=== PATIENT | female | born 1980 | race Caucasian/White ===

== ENCOUNTER 2023-10-09 12:50 | Inpatient (IN) | payer OTHER ==
[~2023-10-09] VITALS: Ht 175.3 cm; Wt 103.8 kg
[2023-10-09 13:28] LABS: BASOPHILS % (AUTO) 0.3 % (0-1); EOSINOPHILS % (AUTO) 0.1 % (0-6); HEMATOCRIT 40.1 % (35.0-45.0); HEMOGLOBIN 12.8 g/dl (12.0-16.0); MEAN CORPUSCULAR HEMOGLOBIN 27.8 PG (27.0-31.0); MEAN CORPUSCULAR HGB CONC 31.9 g/dL (33.0-36.5); MEAN CORPUSCULAR VOLUME 87.1 FL (78-98); MEAN PLATELET VOLUME 7.7 FL (7.4-10.4); MONOCYTES # (AUTO) 1.3 X10'3 (0-0.9); MONOCYTES % (AUTO) 9.2 % (2-12); NEUTROPHILS # (AUTO) 11.7 X10'3 (1.8-7.7); NEUTROPHILS % (AUTO) 83.4 % (42-75); PLATELET COUNT 223 X10'3 (140-440); RED CELL DISTRIBUTION WIDTH 14.8 % (11.5-14.5); WHITE BLOOD COUNT 14.1 X10'3 (4.5-11.0)
[2023-10-09 14:09] LABS: ALBUMIN 2.6 G/DL (3.4-5.0); ANION GAP 12 (8-16); BLOOD UREA NITROGEN 19 MG/DL (7-18); BUN/CREATININE RATIO 17.9 (10.0-20.0); CALCIUM 8.3 MG/DL (8.5-10.1); CHLORIDE 107 MMOL/L (99-107); CREATININE 1.06 MG/DL (0.40-0.90); GLUCOSE 90 MG/DL (70-104); PRO BRAIN NATRIURETIC PEPTIDE 3000 PG/ML (0-125); SODIUM 141 MMOL/L (135-145); TOTAL CARBON DIOXIDE 22.2 MMOL/L (24-32); eCRCL 71 ML/MIN; eGFR 56 ML/MIN
[2023-10-09 14:30] LABS: APTT 42 SECONDS (22-32); INR 1.5 INR; PROTHROMBIN TIME 16.1 SECONDS (9.0-12.0)
[2023-10-09] MEDS ORDERED: heparin 10,000 units/1 ML INJ IV PRN (15:00)
[2023-10-09] MEDS: pantoprazole 40 MG vial IV STA (15:02)
[2023-10-09] MEDS: HYDROcodone/acetaminophen 10/325mg tab PO ONE (15:11)
[2023-10-09] MEDS: PERFLUTREN PROTEIN-A MICROSPHR (Optison) 0.22 MG/ML 3ML VIAL IV ONE (19:15)
[2023-10-09] MEDS ORDERED: acetaminophen 325mg tablet PO PRN (19:25)
[2023-10-09] MEDS ORDERED: magnesium Cl slow-release 64mg tablet PO PRN (19:25)
[2023-10-09] MEDS ORDERED: potassium Cl 20 mEq SR tablet PO PRN ×2 (19:25)
[2023-10-09] MEDS ORDERED: mag hydrox/Alum hydrox/simeth 30ml oral suspension PO PRN (19:25)
[2023-10-09] MEDS ORDERED: magnesium 2GM in 50ml NS 50 ML IV PRN (19:25)
[2023-10-09] MEDS ORDERED: magnesium 4gm in 100ml NS 100 ML IV PRN (19:25)
[2023-10-09] MEDS ORDERED: magnesium hydroxide 30ml (MOM) UD suspension PO PRN (19:25)
[2023-10-09] MEDS ORDERED: ondansetron/PF 4mg/2ml inj IV PRN (19:25)
[2023-10-09] MEDS ORDERED: potassium Cl 40MEQ/1/2NS 520ml 520 ML IV PRN (19:25)
[2023-10-09] MEDS: heparin 10,000 units/1 ML INJ IV ONE (19:43)
[2023-10-09] MEDS: heparin 25,000 UNIT/250ml bag 250 ML IV PRN (19:44)
[2023-10-09 19:56] LABS: APTT 29 SECONDS (22-32); INR 1.6 INR; PROTHROMBIN TIME 16.5 SECONDS (9.0-12.0)
[2023-10-09] MEDS: docusate sod 100mg capsule PO SCH (20:00)
[2023-10-09] MEDS: K and/or MAG REPLACEMENT MC SCH (20:00)
[2023-10-09] MEDS: normal saline 1000ml 1,000 ML IV SCH (20:25)
[2023-10-09] MEDS: normal saline 1000ml 1,000 ML IV ONE (20:35)
[2023-10-09 20:46] LABS: HEMATOCRIT 37.9 % (35.0-45.0); HEMOGLOBIN 12.4 g/dl (12.0-16.0); MEAN CORPUSCULAR HEMOGLOBIN 28.5 PG (27.0-31.0); MEAN CORPUSCULAR HGB CONC 32.6 g/dL (33.0-36.5); MEAN CORPUSCULAR VOLUME 87.4 FL (78-98); MEAN PLATELET VOLUME 7.7 FL (7.4-10.4); PLATELET COUNT 203 X10'3 (140-440); RED BLOOD COUNT 4.34 X10'6 (4.20-5.60); RED CELL DISTRIBUTION WIDTH 14.7 % (11.5-14.5); WHITE BLOOD COUNT 9.8 X10'3 (4.5-11.0)
[2023-10-09] MEDS: acetaminophen 325mg tablet PO PRN (22:55)
[2023-10-10] VITALS (12 sets, daily range): BP systolic 121–150; BP diastolic 75–99; PULSE 82–103; RESP 13–24; O2SAT 92–98
[2023-10-10 01:53] LABS: HEMATOCRIT 32.2 % (35.0-45.0); HEMOGLOBIN 10.7 g/dl (12.0-16.0); MEAN CORPUSCULAR HEMOGLOBIN 28.6 PG (27.0-31.0); MEAN CORPUSCULAR HGB CONC 33.1 g/dL (33.0-36.5); MEAN CORPUSCULAR VOLUME 86.2 FL (78-98); MEAN PLATELET VOLUME 7.7 FL (7.4-10.4); PLATELET COUNT 182 X10'3 (140-440); RED BLOOD COUNT 3.73 X10'6 (4.20-5.60); RED CELL DISTRIBUTION WIDTH 14.8 % (11.5-14.5); WHITE BLOOD COUNT 8.9 X10'3 (4.5-11.0)
[2023-10-10 02:00] LABS: MAGNESIUM 1.7 MG/DL (1.5-2.4); POTASSIUM 3.6 MMOL/L (3.5-5.1)
[2023-10-10 02:45] LABS: APTT > 139 SECONDS (22-32)
[2023-10-10] MEDS: HYDROmorphone inj. 0.5 MG/0.5 ML DISP.SYRIN IV ONE (03:00)
[2023-10-10 07:03] LABS: HEMATOCRIT 31.3 % (35.0-45.0); HEMOGLOBIN 10.2 g/dl (12.0-16.0); MEAN CORPUSCULAR HEMOGLOBIN 28.5 PG (27.0-31.0); MEAN CORPUSCULAR HGB CONC 32.6 g/dL (33.0-36.5); MEAN CORPUSCULAR VOLUME 87.3 FL (78-98); MEAN PLATELET VOLUME 7.7 FL (7.4-10.4); PLATELET COUNT 174 X10'3 (140-440); RED BLOOD COUNT 3.58 X10'6 (4.20-5.60); RED CELL DISTRIBUTION WIDTH 14.5 % (11.5-14.5); WHITE BLOOD COUNT 7.6 X10'3 (4.5-11.0)
[2023-10-10 07:20] LABS: APTT 57 SECONDS (22-32)
[2023-10-10] MEDS: HYDROcodone/acetaminophen 10/325mg tab PO PRN (11:00)
[2023-10-10] MEDS: normal saline 1000ml 1,000 ML IV SCH (13:15)
[2023-10-10 15:37] LABS: HEMATOCRIT 34.5 % (35.0-45.0); HEMOGLOBIN 11.1 g/dl (12.0-16.0); MEAN CORPUSCULAR HEMOGLOBIN 28.2 PG (27.0-31.0); MEAN CORPUSCULAR HGB CONC 32.2 g/dL (33.0-36.5); MEAN CORPUSCULAR VOLUME 87.4 FL (78-98); MEAN PLATELET VOLUME 7.9 FL (7.4-10.4); PLATELET COUNT 184 X10'3 (140-440); RED BLOOD COUNT 3.94 X10'6 (4.20-5.60); RED CELL DISTRIBUTION WIDTH 14.9 % (11.5-14.5); WHITE BLOOD COUNT 8.8 X10'3 (4.5-11.0)
[2023-10-10] MEDS ORDERED: NO HOME MEDS (16:05)
[2023-10-10 20:43] LABS: HEMATOCRIT 32.4 % (35.0-45.0); HEMOGLOBIN 10.7 g/dl (12.0-16.0); MEAN CORPUSCULAR HEMOGLOBIN 28.7 PG (27.0-31.0); MEAN CORPUSCULAR HGB CONC 33.1 g/dL (33.0-36.5); MEAN CORPUSCULAR VOLUME 86.7 FL (78-98); MEAN PLATELET VOLUME 7.9 FL (7.4-10.4); PLATELET COUNT 192 X10'3 (140-440); RED BLOOD COUNT 3.73 X10'6 (4.20-5.60); WHITE BLOOD COUNT 8.1 X10'3 (4.5-11.0)
[2023-10-11] VITALS (16 sets, daily range): BP systolic 120–147; BP diastolic 67–97; PULSE 70–93; RESP 13–19; TEMP 97.5–98; O2SAT 91–98
[2023-10-11 02:55] LABS: BASOPHILS % (AUTO) 0.6 % (0-1); EOSINOPHILS # (AUTO) 0.1 X10'3 (0-0.9); EOSINOPHILS % (AUTO) 1.9 % (0-6); HEMATOCRIT 30.9 % (35.0-45.0); HEMOGLOBIN 10.1 g/dl (12.0-16.0); LYMPHOCYTES % (AUTO) 26.7 % (21-51); MEAN CORPUSCULAR HEMOGLOBIN 28.5 PG (27.0-31.0); MEAN CORPUSCULAR HGB CONC 32.8 g/dL (33.0-36.5); MEAN CORPUSCULAR VOLUME 86.9 FL (78-98); MEAN PLATELET VOLUME 7.6 FL (7.4-10.4); MONOCYTES # (AUTO) 0.7 X10'3 (0-0.9); MONOCYTES % (AUTO) 9.4 % (2-12); NEUTROPHILS # (AUTO) 4.7 X10'3 (1.8-7.7); NEUTROPHILS % (AUTO) 61.4 % (42-75); PLATELET COUNT 193 X10'3 (140-440); RED BLOOD COUNT 3.55 X10'6 (4.20-5.60); RED CELL DISTRIBUTION WIDTH 14.6 % (11.5-14.5); WHITE BLOOD COUNT 7.6 X10'3 (4.5-11.0)
[2023-10-11 03:09] LABS: ALANINE AMINOTRANSFERASE 38 U/L (12-78); ALBUMIN 2.3 G/DL (3.4-5.0); ALBUMIN/GLOBULIN RATIO 0.6 (1.1-1.5); ALKALINE PHOSPHATASE 114 IU/L (46-116); ANION GAP 10 (8-16); ASPARTATE AMINO TRANSFERASE 26 U/L (10-37); BILIRUBIN,TOTAL 0.3 MG/DL (0.1-1.0); BLOOD UREA NITROGEN 13 MG/DL (7-18); BUN/CREATININE RATIO 14.8 (10.0-20.0); CHLORIDE 109 MMOL/L (99-107); CREATININE 0.88 MG/DL (0.40-0.90); GLUCOSE 109 MG/DL (70-104); MAGNESIUM 2.1 MG/DL (1.5-2.4); POTASSIUM 4.1 MMOL/L (3.5-5.1); SODIUM 142 MMOL/L (135-145); TOTAL CARBON DIOXIDE 22.6 MMOL/L (24-32); TOTAL PROTEIN 5.9 G/DL (6.4-8.2); eCRCL 85 ML/MIN; eGFR 70 ML/MIN
[2023-10-11] MEDS: rivaroxaban 15mg tablet PO SCH (12:19)
[2023-10-12 02:00] VITALS: BP 128/74; PULSE 83; RESP 16; TEMP 97.6; O2SAT 97
[2023-10-12 06:05] LABS: ALANINE AMINOTRANSFERASE 60 U/L (12-78); ALBUMIN 2.4 G/DL (3.4-5.0); ALBUMIN/GLOBULIN RATIO 0.7 (1.1-1.5); ALKALINE PHOSPHATASE 138 IU/L (46-116); ANION GAP 7 (8-16); ASPARTATE AMINO TRANSFERASE 45 U/L (10-37); BILIRUBIN,TOTAL 0.5 MG/DL (0.1-1.0); BLOOD UREA NITROGEN 13 MG/DL (7-18); BUN/CREATININE RATIO 15.9 (10.0-20.0); CALCIUM 8.6 MG/DL (8.5-10.1); CHLORIDE 107 MMOL/L (99-107); CREATININE 0.82 MG/DL (0.40-0.90); GLUCOSE 101 MG/DL (70-104); MAGNESIUM 2.2 MG/DL (1.5-2.4); POTASSIUM 4.1 MMOL/L (3.5-5.1); SODIUM 140 MMOL/L (135-145); TOTAL CARBON DIOXIDE 26.1 MMOL/L (24-32); eCRCL 92 ML/MIN; eGFR 76 ML/MIN
[2023-10-12 06:15] LABS: BASOPHILS % (AUTO) 0.4 % (0-1); EOSINOPHILS # (AUTO) 0.1 X10'3 (0-0.9); EOSINOPHILS % (AUTO) 1.7 % (0-6); HEMATOCRIT 30.6 % (35.0-45.0); LYMPHOCYTES # (AUTO) 1.5 X10'3 (1.1-4.8); LYMPHOCYTES % (AUTO) 26.4 % (21-51); MEAN CORPUSCULAR HEMOGLOBIN 28.3 PG (27.0-31.0); MEAN CORPUSCULAR HGB CONC 32.6 g/dL (33.0-36.5); MEAN CORPUSCULAR VOLUME 86.6 FL (78-98); MEAN PLATELET VOLUME 7.7 FL (7.4-10.4); MONOCYTES # (AUTO) 0.6 X10'3 (0-0.9); NEUTROPHILS # (AUTO) 3.4 X10'3 (1.8-7.7); NEUTROPHILS % (AUTO) 61.5 % (42-75); PLATELET COUNT 218 X10'3 (140-440); RED BLOOD COUNT 3.54 X10'6 (4.20-5.60); RED CELL DISTRIBUTION WIDTH 14.9 % (11.5-14.5); WHITE BLOOD COUNT 5.6 X10'3 (4.5-11.0)
[2023-10-12 07:11] VITALS: BP 113/74; PULSE 88; RESP 14; TEMP 98; O2SAT 96
[2023-10-12 08:00] VITALS: RESP 14; O2SAT 96
[2023-10-12 11:38] VITALS: BP 114/72; PULSE 90; RESP 14; TEMP 98.1; O2SAT 98
[2023-10-12] MEDS ORDERED: RIVA20TA PO (12:33)
[2023-10-12] MEDS ORDERED: RIVA15TA PO (12:33)
[2023-11-02] MEDS ORDERED: rivaroxaban 20mg tablet PO SCH (18:00)
== END 2023-10-12 14:13 | disposition home or self-care (01) | DRG 175 ==
LOC: ER 12:51 → ED HOLD 19:32 → EDBEDREQ 10-10 10:11 → CICU 2S 10-10 11:30 → ICU 2S 10-10 15:21 → PCU 3S 10-11 12:34
PROVIDERS: ADMIT Internal Medicine Critical Care Medicine; ATTEND Internal Medicine Critical Care Medicine
DX: I26.92 Saddle embolus of pulmonary artery without acute cor pulmonale (principal); I21.A1 Myocardial infarction type 2; N17.0 Acute kidney failure with tubular necrosis; S82.851A Displaced trimalleolar fracture of right lower leg, initial encounter for closed fracture; W18.39XA Other fall on same level, initial encounter; F41.9 Anxiety disorder, unspecified; D64.9 Anemia, unspecified; Z91.81 History of falling; Y93.89 Activity, other specified; Y92.89 Other specified places as the place of occurrence of the external cause; Y99.8 Other external cause status; Z80.0 Family history of malignant neoplasm of digestive organs; Z80.3 Family history of malignant neoplasm of breast; Z86.711 Personal history of pulmonary embolism; Z80.8 Family history of malignant neoplasm of other organs or systems
CPT/HCPCS: 36415; 71045; 80048; 80053; 83735; 83880; 84132; 84484; 85025; 85027; 85610; 85730; 87081; 92508; 92616; 93005; 93306; 93970; 96374; 99285; A4615; C9113; G0378; J1170; J1644; J7030